=== PATIENT | female | born 1980 | race Caucasian/White ===

== ENCOUNTER 2016-08-08 22:06 | Emergency (ER) | payer MEDICAID, OTHER ==
[2016-08-08 23:34] LABS: ABSOLUTE EOSINOPHILS # (AUTO) 0.2 10^3/uL (0.0-0.6); ABSOLUTE LYMPHOCYTES (AUTO) 2.4 10^3/uL (0.5-4.7); ABSOLUTE MONOCYTES (AUTO) 0.5 10^3/uL (0.1-1.4); ABSOLUTE NEUT (AUTO) 4.9 10^3/uL (1.7-8.2); BASOPHILS % (AUTO) 0.4 % (0-2); HEMATOCRIT 40.7 % (36.0-47.0); HEMOGLOBIN 14.1 g/dL (12.0-15.5); HGB HCT DIFFERENCE 1.6; LYMPHOCYTES % (AUTO) 29.8 % (13-45); MEAN CORPUSCULAR HEMOGLOBIN 31.5 pg (27.0-33.4); MEAN CORPUSCULAR HGB CONC 34.6 g/dL (32.0-36.0); MEAN CORPUSCULAR VOLUME 91 fl (80-97); MONOCYTES % (AUTO) 6.4 % (3-13); RED BLOOD COUNT 4.47 10^6/uL (3.72-5.28); RED CELL DISTRIBUTION WIDTH 13.3 % (11.5-14.0); SEGMENTED NEUTROPHILS % (AUTO) 60.4 % (42-78); WHITE BLOOD COUNT 8.2 10^3/uL (4.0-10.5)
[2016-08-08 23:48] LABS: APPEARANCE,URINE SLIGHTLY-CLOUDY; BILIRUBIN,URINE NEGATIVE (NEGATIVE); GLUCOSE, URINE NEGATIVE (NEGATIVE); KETONES,URINE NEGATIVE (NEGATIVE); LEUKOCYTE ESTERASE,URINE NEGATIVE (NEGATIVE); NITRITE,URINE NEGATIVE (NEGATIVE); PROTEIN,URINE NEGATIVE (NEGATIVE); UROBILINOGEN,URINE NEGATIVE mg/dL (<2.0)
[2016-08-08 23:50] LABS: ALANINE AMINOTRANSFERASE 21 U/L (9-52); ALBUMIN 4.2 g/dL (3.5-5.0); ALKALINE PHOSPHATASE 77 U/L (38-126); ANION GAP 10 (5-19); ASPARTATE AMINO TRANSFERASE 18 U/L (14-36); BILIRUBIN,TOTAL 0.4 mg/dL (0.2-1.3); BLOOD UREA NITROGEN 13 mg/dL (7-20); CARBON DIOXIDE 28 mmol/L (22-30); CHLORIDE 102 mmol/L (98-107); CREATININE RESULT 0.69 mg/dL (0.52-1.25); GLUCOSE 113 mg/dL (75-110); LIPASE 245.4 U/L (23-300); POTASSIUM 4.6 mmol/L (3.6-5.0); SODIUM 140.2 mmol/L (137-145); TOTAL PROTEIN 7.2 g/dL (6.3-8.2)
[2016-08-09] MEDS ORDERED: NORMAL SALINE 1000 ML 1,000 ML IV ONE (01:12)
[2016-08-09] MEDS ORDERED: ONDANSETRON HCL INJ/PF 4 MG/2 ML SDV IV ONE (01:13)
[2016-08-09] MEDS ORDERED: MORPHINE SULFATE 10 MG/ML INJ IV ONE (01:13)
--- NOTE | 2016-08-09 01:19 | ER Document Report ---
ED General - General Chief Complaint: Abdominal Pain Stated Complaint: ABDOMINAL PAIN Information source: Patient Notes: This is a 35-year-old female who presents with a 2 day history of abdominal pain. The pain initially started yesterday in the lower abdomen as a cramping feeling and the patient attributed this to possible menstrual cramps. However today the pain has intensified in she states now her entire abdomen hurts. She also feels distended and bloated. She denies any fevers or chills. She has had no nausea, no vomiting. Her last oral intake was at 1900 and consisted of tomato soup and crackers which she tolerated well. She had a normal bowel movement at 2130 last night. She has had no dysuria. Her LMP 07/10/15. TRAVEL OUTSIDE OF THE [place] IN LAST 30 DAYS: No - Related Data Allergies/Adverse Reactions: Penicillins Allergy (Severe, Verified 05/13/16 01:04) swelling, difficulty breathing Shellfish * [Shellfish] Allergy (Severe, Verified 05/13/16 01:04) Anaphylaxis Past Medical History - General Information source: Patient - Social History Smoking Status: Never Smoker Chew tobacco use (# tins/day): No Frequency of alcohol use: None Drug Abuse: None Family History: Reviewed & Not Pertinent Patient has suicidal ideation: No Patient has homicidal ideation: No - Past Medical History Cardiac Medical History: Reports: Hx Hypertension Renal/ Medical History: Denies: Hx Peritoneal Dialysis GI Medical History: Reports: Hx Diverticulitis Psychiatric Medical History: Reports: Hx Depression Past Surgical History: Reports: Hx Section - x3 - Immunizations Hx Diphtheria, Pertussis, Tetanus Vaccination: Yes Review of Systems - Review of Systems Notes: REVIEW OF SYSTEMS: CONSTITUTIONAL : Denies fever, chills, or sweats. Denies recent illness. EENT: Denies eye, ear, throat, or mouth pain or symptoms. Denies nasal or sinus congestion. CARDIOVASCULAR: Denies chest pain. RESPIRATORY: Denies cough, cold, or chest congestion. Denies shortness of breath, difficulty breathing, or wheezing. GASTROINTESTINAL: As per history of present illness GENITOURINARY: Denies difficulty urinating, painful urination, burning, frequency, or blood in urine. MUSCULOSKELETAL: Denies neck or back pain or joint pain or swelling. SKIN: Denies rash or skin lesions. HEMATOLOGIC : Denies easy bruising or bleeding. LYMPHATIC: Denies swollen, enlarged glands. NEUROLOGICAL: Denies altered mental status or loss of consciousness. Denies headache. PSYCHIATRIC: Denies anxiety or stress or depression. ALL OTHER SYSTEMS REVIEWED AND NEGATIVE. Physical Exam - Vital signs Vitals: Temp Pulse Resp BP Pulse Ox 98.1 F 90 17 132/84 H 97 08/08/16 22:33 08/08/16 22:33 08/08/16 22:33 08/08/16 22:33 08/08/16 22:33 - Notes Notes: PHYSICAL EXAMINATION: GENERAL: Well-appearing, well-nourished and in no acute distress. HEAD: Atraumatic, normocephalic. EYES: Pupils equal round and reactive to light, extraocular movements intact, sclera anicteric, conjunctiva are normal. ENT: nares patent, oropharynx clear without exudates. Moist mucous membranes. NECK: Normal range of motion, supple without lymphadenopathy LUNGS: Breath sounds clear to auscultation bilaterally and equal. No wheezes rales or rhonchi. HEART: Regular rate and rhythm without murmurs ABDOMEN: Soft, somewhat distended, TTP to RLQ, epigastric and suprapubic area, voluntary guarding (mild), no rebound, normoactive bowel sounds. No masses appreciated. EXTREMITIES: Normal range of motion, no pitting or edema. No cyanosis. NEUROLOGICAL: Cranial nerves grossly intact. Normal speech, normal gait. No gross focal motor or sensory deficits appreciated. PSYCH: Normal mood, normal affect. SKIN: Warm, Dry, normal turgor, no rashes or lesions noted. Course - Re-evaluation Re-evalutation: 08/09/16 03:55 Patient states she continues to have intermittent abdominal cramping. She has had no nausea or vomiting. Labs and CAT scan were reviewed both of which were reassuring. At this time I see no physical exam findings or laboratory/ radiologic findings for acute surgical process. Patient will be treated symptomatically and is encouraged to follow closely with her primary care physician. We discussed strict return precautions to include fever, persistent vomiting, or increased pain. She is very comfortable with the plan QUESTIONS were answered. - Vital Signs Vital signs: Temp Pulse Resp BP Pulse Ox 98.1 F 92 17 132/84 H 97 08/08/16 22:34 08/08/16 22:34 08/08/16 22:34 08/08/16 22:34 08/08/16 22:34 - Laboratory Result Diagrams: 08/08/16 23:20 08/08/16 23:20 Laboratory results interpreted by me: 08/08/16 08/08/16 23:20 23:20 Glucose 113 H Urine Blood SMALL H Discharge - Discharge Clinical Impression: Abdominal pain in female patient Condition: Stable Disposition: HOME, SELF-CARE Additional Instructions: ABDOMINAL PAIN: There are many causes of abdominal pain. Pain can mean a serious problem requiring surgery (such as appendicitis). It can also be an innocent problem that goes away on its own (such as a viral infection). Often, time must pass to determine the cause of pain. The physician does not feel that hospitalization is necessary, at present. Things may change within the next 24 hours. Call the doctor or come back for re- examination if any problems occur, such as: (1) Pain that becomes more severe, steady, or becomes concentrated in one specific area. Also, pain that is more severe with movement or coughing. (2) Vomiting that persists or becomes more frequent. (3) Blood in the vomitus, urine, or bowel movements. Blood in the stool may have a tarry or black appearance. (4) Shaking chills or fever greater than 100 degrees F. (5) The abdomen becomes more distended or swollen. (6) Bowel movements cease. (7) Failure to improve as expected. NORMAL EXAM AND WORKUP: At this time, your examination and workup show no significant abnormality. No significant abnormal physical findings are noted. All laboratory, EKG, and imaging (x-ray, CT scans, ultrasound) studies that were ordered show no significant abnormality. Although your examination and all studies that were ordered showed no significant abnormal finding, there are no examinations and no studies that are 100% accurate. There is always the possibility that some abnormality could exist and not be detected with physical examination or within the limits and capabilities of laboratory and other studies. You should return or follow up as you were instructed on your visit today for further evaluation if your symptoms do not resolve. TORADOL INJECTION: You have been given an injection of ketorolac tromethamine (Toradol). This is an excellent, safe drug for pain control. It also has potent antiinflammatory action. You should have significant pain relief within about one hour. Toradol is not addicting and is non-sedating. It does not interfere with driving or work. Call or return if you develop itching, hives, shortness of breath, or rash. PAIN MEDICATION INJECTION: You have received an injection of a pain medication. You should experience significant pain relief within 45 minutes. This drug is a narcotic - - it will impair your judgement, slow your reaction time and make you sleepy ( as well as relieve your pain). Narcotics also can cause nausea. You should not drive, work with machinery, or perform any task requiring mental alertness until all effects of the medication are gone -- six to eight hours. Do not take any alcohol, or sedatives, and do not take any other medication without checking with your physician. ANTINAUSEA MEDICATION: You have been given a medication to suppress nausea and vomiting. This type of medication can be given as a shot, pill, or suppository. It will usually last for many hours. Pills and shots usually last six to eight hours, suppositories last about 12 hours. For the typical illness, only one or two doses of the medication may be necessary. Mild lightheadedness may occur. This type of medicine can cause drowsiness. Do not drive or operate dangerous machinery while under its influence. Do not mix with alcohol. See your doctor at once if you have muscle spasms or tightness, or uncontrollable motions (particularly of the neck, mouth, or jaw). Persistent vomiting or severe lightheadedness should also be evaluated by the physician. ANTISPASMODICS: You have been given a prescription for an antispasmodic medicine. This type of drug is used to decrease cramping and pain in the intestines. It is also used to decrease secretion of internal fluids (such as stomach acid in ulcer disease or pancreatic juice in pancreas disease). This medicine may cause drowsiness, especially with the first dose. Do not operate machinery or drive until all side effects have resolved. Do not combine with alcohol. Other common side effects include dry mouth and eyes. In older persons, antispasmodics can occasionally cause urinary retention, constipation, or trouble focusing the eyes. Glaucoma may be worsened by this medicine. FOLLOW-UP CARE: If you have been referred to a physician for follow-up care, call the physician s office for an appointment as you were instructed or within the next two days. If you experience worsening or a significant change in your symptoms, notify the physician immediately or return to the Emergency Department at any time for re-evaluation. Prescriptions: Dicyclomine HCl [Bentyl 20 mg Tablet] 20 mg PO Q6H PRN #15 tablet PRN Reason: For Pain Ibuprofen 600 mg PO Q8H PRN #20 tablet PRN Reason: For Pain
[2016-08-09] MEDS ORDERED: KETOROLAC TROMETHAMINE INJ/PF 30 MG/1 ML SDV IV ONE (03:40)
[2016-08-09] MEDS ORDERED: DICYCLOMINE HCL INJ 20 MG/2 ML AMPULE IM SCH (03:45)
[2016-08-09 04:26] VITALS: BP 125/81
== END 2016-08-09 04:20 | disposition home or self-care (01) ==
LOC: ER 22:06
DX: R10.84 Generalized abdominal pain (principal); R14.0 Abdominal distension (gaseous); I10 Essential (primary) hypertension; Z88.0 Allergy status to penicillin; Z87.892 Personal history of anaphylaxis; Z91.013 Allergy to seafood
CPT/HCPCS: 99284; 96372; 96361; 96374; 96375; 36415; 83690; 84703; 85025; 80053; 81001; 74177; J1885; J2270; J2405; J7030

== ENCOUNTER 2017-03-26 17:07 | Observation (INO) | payer SELFPAY ==
--- NOTE | 2017-03-26 19:13 | ER Document Report ---
ED Medical Screen (RME) - General Chief Complaint: Abdominal Pain >50 Stated Complaint: RIGHT SIDE PAIN Time Seen by Provider: 03/26/17 19:07 Notes: Patient is a 36 year old female who presents with RLQ pain with sudden onset at 6am, described as sharp stabbing pain, subsided throughout the day and worse in the past 30 minutes. Denies previous similar symptoms. Tubal ligation in December. Denies vaginal symptoms. Still has her appendix, Admits to history of ovarian cysts but that pain was more severe in pelvic in nature admits to nausea, denies vomiting, diarrhea or constipation Last NPO was noon TRAVEL OUTSIDE OF THE [place] IN LAST 30 DAYS: No - Related Data Allergies/Adverse Reactions: Penicillins Allergy (Severe, Verified 05/13/16 01:04) swelling, difficulty breathing Shellfish * [Shellfish] Allergy (Severe, Verified 05/13/16 01:04) Anaphylaxis Past Medical History - Past Medical History Cardiac Medical History: Reports: Hx Hypertension Renal/ Medical History: Denies: Hx Peritoneal Dialysis GI Medical History: Reports: Hx Diverticulitis Psychiatric Medical History: Reports: Hx Depression Past Surgical History: Reports: Hx Section - x3 - Immunizations Hx Diphtheria, Pertussis, Tetanus Vaccination: Yes Physical Exam - Vital signs Vitals: Temp Pulse Resp BP Pulse Ox 99 F 75 15 140/89 H 96 03/26/17 17:26 03/26/17 17:26 03/26/17 17:26 03/26/17 17:26 03/26/17 17:26 - Respiratory Respiratory status: No respiratory distress Chest status: Nontender Breath sounds: Normal Chest palpation: Normal - Cardiovascular Rhythm: Regular Heart sounds: Normal auscultation, S1 appreciated, S2 appreciated - Abdominal Inspection: Normal Distension: No distension Bowel sounds: Hyperactive Tenderness: McBurney's point Organomegaly: No organomegaly Course - Vital Signs Vital signs: Temp Pulse Resp BP Pulse Ox 99 F 75 15 140/89 H 96 03/26/17 17:26 03/26/17 17:26 03/26/17 17:26 03/26/17 17:26 03/26/17 17:26
[2017-03-26] MEDS ORDERED: NORMAL SALINE 1000 ML 1,000 ML IV PRN (19:14)
[2017-03-26 20:00] LABS: ABSOLUTE BASOPHILS # (AUTO) 0.1 10^3/uL (0.0-0.2); ABSOLUTE EOSINOPHILS # (AUTO) 0.1 10^3/uL (0.0-0.6); ABSOLUTE LYMPHOCYTES (AUTO) 2.1 10^3/uL (0.5-4.7); ABSOLUTE MONOCYTES (AUTO) 0.4 10^3/uL (0.1-1.4); ABSOLUTE NEUT (AUTO) 3.6 10^3/uL (1.7-8.2); BASOPHILS % (AUTO) 0.9 % (0-2); EOSINOPHILS % (AUTO) 1.6 % (0-6); HEMATOCRIT 39.6 % (36.0-47.0); HEMOGLOBIN 13.5 g/dL (12.0-15.5); HGB HCT DIFFERENCE 0.9; LYMPHOCYTES % (AUTO) 34.1 % (13-45); MEAN CORPUSCULAR HEMOGLOBIN 31.2 pg (27.0-33.4); MEAN CORPUSCULAR HGB CONC 34.1 g/dL (32.0-36.0); MEAN CORPUSCULAR VOLUME 92 fl (80-97); MONOCYTES % (AUTO) 6.3 % (3-13); RED BLOOD COUNT 4.33 10^6/uL (3.72-5.28); RED CELL DISTRIBUTION WIDTH 13.4 % (11.5-14.0); SEGMENTED NEUTROPHILS % (AUTO) 57.1 % (42-78); WHITE BLOOD COUNT 6.3 10^3/uL (4.0-10.5)
[2017-03-26] MEDS ORDERED: ONDANSETRON HCL INJ/PF 4 MG/2 ML SDV IV ONE (20:05)
[2017-03-26] MEDS ORDERED: MORPHINE SULFATE 10 MG/ML INJ IV ONE (20:05)
--- NOTE | 2017-03-26 20:09 | ER Document Report ---
ED GI/ - General Chief Complaint: Abdominal Pain >50 Stated Complaint: RIGHT SIDE PAIN Time Seen by Provider: 03/26/17 19:07 Notes: Patient is a 36-year-old female comes emergency department for chief complaint of right sided lower abdominal pain that started at 6 AM this morning, she states she has not felt good all day, she ate a few crackers at noon but otherwise has not eaten anything, she denies vomiting, fever, vaginal discharge , vaginal bleeding, flank pain, dysuria. She states that originally it was hurting more around her navel but now it is hurting more in the right lower area. Past medical history tubal ligation, , ovarian cyst, she takes no daily medications. TRAVEL OUTSIDE OF THE [place] IN LAST 30 DAYS: No - Related Data Allergies/Adverse Reactions: Penicillins Allergy (Severe, Verified 05/13/16 01:04) swelling, difficulty breathing Shellfish * [Shellfish] Allergy (Severe, Verified 05/13/16 01:04) Anaphylaxis Past Medical History - General Information source: Patient - Social History Smoking Status: Never Smoker Frequency of alcohol use: None Drug Abuse: None Lives with: Family Family History: Reviewed & Not Pertinent Patient has suicidal ideation: No Patient has homicidal ideation: No - Past Medical History Cardiac Medical History: Reports: Hx Hypertension Renal/ Medical History: Denies: Hx Peritoneal Dialysis GI Medical History: Reports: Hx Diverticulitis Psychiatric Medical History: Reports: Hx Depression Past Surgical History: Reports: Hx Section - x3 - Immunizations Hx Diphtheria, Pertussis, Tetanus Vaccination: Yes Review of Systems - Review of Systems Constitutional: No symptoms reported EENT: No symptoms reported Cardiovascular: No symptoms reported Respiratory: No symptoms reported Gastrointestinal: See HPI Genitourinary: No symptoms reported Female Genitourinary: No symptoms reported Musculoskeletal: No symptoms reported Skin: No symptoms reported Hematologic/Lymphatic: No symptoms reported Neurological/Psychological: No symptoms reported Physical Exam - Vital signs Vitals: Temp Pulse Resp BP Pulse Ox 99 F 75 15 140/89 H 96 03/26/17 17:26 03/26/17 17:26 03/26/17 17:26 03/26/17 17:26 03/26/17 17:26 Interpretation: Normal - General General appearance: Appears well, Alert - HEENT Head: Normocephalic, Atraumatic Eyes: Normal Conjunctiva: Normal Extraocular movements intact: Yes Eyelashes: Normal Pupils: PERRL Nasal: Normal Mouth/Lips: Normal Mucous membranes: Normal Pharynx: Normal Neck: Normal - Respiratory Respiratory status: No respiratory distress Chest status: Nontender Breath sounds: Normal. No: Decreased air movement, Wheezing Chest palpation: Normal - Cardiovascular Rhythm: Regular. No: Tachycardia Heart sounds: Normal auscultation, S1 appreciated, S2 appreciated Murmur: No - Abdominal Inspection: Normal Distension: No distension Bowel sounds: Normal Tenderness: Tender, McBurney's point - Guarding specifically at McBurney's point , Guarding Organomegaly: No organomegaly - Genitourinary External exam: Normal Speculum exam: Cervix closed, Vaginal discharge - Minimal, scant Vaginal bleeding: None Bimanuel exam: No: Cervical motion tender Notes: PCT Myla present during exam - Back Back: Normal, Nontender. No: Tender, CVA tenderness - Extremities General upper extremity: Normal inspection, Nontender, Normal strength, Normal temperature General lower extremity: Normal inspection, Nontender, Normal strength, Normal temperature - Neurological Neuro grossly intact: Yes Cognition: Normal Orientation: AAOx4 Genesis Coma Scale Eye Opening: Spontaneous Genesis Coma Scale Verbal: Oriented [place] Coma Scale Motor: Obeys Commands Genesis Coma Scale Total: 15 Speech: Normal Motor strength normal: LUE, RUE, LLE, RLE Sensory: Normal - Psychological Associated symptoms: Normal affect, Normal mood - Skin Skin Temperature: Warm Skin Moisture: Dry Skin Color: Normal Course - Re-evaluation Re-evalutation: Patient in obvious discomfort, has tenderness at McBurney's point on exam, remaining abdomen is non-tender. No leukocytosis, chemistry unremarkable, urinalysis shows some dehydration but not infection. Cat scan reviewed from triage and shows small umbilical hernia containing fat, this is also palpable on exam, although the area is not tender on exam. Appendix visualized, radiologist reads as normal. On re-examination patient continues to be uncomfortable, has peritoneal signs on exam (just raising the bed higher makes patient uncomfortable). Pelvic examination is unremarkable with minimal discharge, no noted tenderness, no other concerning findings. No evidence of pelvic pain suggesting ovarian cyst either. Wet mount is nonspecific. Gonorrhea and Chlamydia still pending, patient denies concerns about STD. Spoke with Dr. Garcia, surgicalist freedom of information officer, he evaluated the patient at bedside and reviewed her workup. Recommendation is admit to hospital with observation. He does not recommend antibiotics or additional interventions at this time. - Vital Signs Vital signs: Temp Pulse Resp BP Pulse Ox 99 F 75 15 140/89 H 96 03/26/17 17:26 03/26/17 17:26 03/26/17 17:26 03/26/17 17:26 03/26/17 17:26 - Laboratory Result Diagrams: 03/26/17 19:38 03/26/17 20:20 Laboratory results interpreted by me: 03/26/17 03/26/17 19:51 20:20 Chloride 110 H Carbon Dioxide 21 L Urine Protein 30 H Urine Blood MODERATE H Discharge - Discharge Clinical Impression: Right lower quadrant pain Condition: Stable Disposition: ADMITTED OBSERVATION Admitting Provider: Surgicalist Unit Admitted: Surgical Floor
[2017-03-26 20:21] LABS: APPEARANCE,URINE SLIGHTLY-CLOUDY; BILIRUBIN,URINE NEGATIVE (NEGATIVE); GLUCOSE, URINE NEGATIVE (NEGATIVE); KETONES,URINE NEGATIVE (NEGATIVE); LEUKOCYTE ESTERASE,URINE NEGATIVE (NEGATIVE); NITRITE,URINE NEGATIVE (NEGATIVE); PROTEIN,URINE 30 mg/dL (NEGATIVE); URINE SPECIFIC GRAVITY 1.025; UROBILINOGEN,URINE NEGATIVE mg/dL (<2.0)
[2017-03-26 21:00] LABS: ALANINE AMINOTRANSFERASE 46 U/L (9-52); ALBUMIN 3.9 g/dL (3.5-5.0); ALKALINE PHOSPHATASE 83 U/L (38-126); ANION GAP 11 (5-19); ASPARTATE AMINO TRANSFERASE 21 U/L (14-36); BILIRUBIN,DIRECT 0.4 mg/dL (0.0-0.4); BILIRUBIN,TOTAL 0.5 mg/dL (0.2-1.3); BLOOD UREA NITROGEN 8 mg/dL (7-20); CALCIUM 8.6 mg/dL (8.4-10.2); CARBON DIOXIDE 21 mmol/L (22-30); CHLORIDE 110 mmol/L (98-107); CREATININE RESULT 0.77 mg/dL (0.52-1.25); GLUCOSE 84 mg/dL (75-110); LIPASE 144.4 U/L (23-300); POTASSIUM 3.7 mmol/L (3.6-5.0); SODIUM 142.3 mmol/L (137-145); TOTAL PROTEIN 6.3 g/dL (6.3-8.2)
--- NOTE | 2017-03-26 21:34 | RADIOLOGY REPORT (SQ) ---
EXAM DESCRIPTION: CT ABD/PELVIS WITH IV ONLY COMPLETED DATE/TIME: 03/26/2017 9:18 pm REASON FOR STUDY: RLQ pain COMPARISON: August 2016 TECHNIQUE: CT scan of the abdomen and pelvis performed using helical scanning technique with dynamic intravenous contrast injection. No oral contrast. Images reviewed with lung, soft tissue, and bone windows. Reconstructed coronal and sagittal MPR images reviewed. Delayed images for evaluation of the urinary system also acquired. All images stored on PACS. All CT scanners at this facility use dose modulation, iterative reconstruction, and/or weight based d osing when appropriate to reduce radiation dose to as low as reasonably achievable (ALARA). [facility]: Dose Right [facility]: CareDose [facility]: Dose Right [facility]: Teradose 4D [facility]: [email or web address] CONTRAST TYPE AND DOSE: contrast/concentration: Isovue 370.00 mg/ml; Total Contrast Delivered: 77.0 ml; Total Saline Delivered: 42.0 ml RENAL FUNCTION: Creatinine 0.77 RADIATION DOSE: Up-to-date CT equipment and radiation dose reduction techniques were employed. CTDIv ol: 6.9 mGy. DLP: 710 mGy-cm.. LIMITATIONS: None. FINDINGS: LOWER CHEST: No significant findings. No nodules or infiltrates. LIVER: Normal size. No masses. No dilated ducts. SPLEEN: Normal size. No focal lesions. PANCREAS: No masses. No significant calcifications. No adjacent inflammation or peripancreatic fluid collections. Pancreatic duct not dilated. GALLBLADDER: No identified stones by CT criteria. No inflammatory changes to suggest cholecystitis. ADRENAL GLANDS: No significant masses or asymmetry. RIGHT KIDNEY AND URETER: No solid masses. No significant calcifications. No hydronephrosis or hyd roureter. LEFT KIDNEY AND URETER: No solid masses. No significant calcifications. No hydronephrosis or hydr oureter. AORTA AND VESSELS: No aneurysm. No dissection. Renal arteries, SMA, celiac without stenosis. RETROPERITONEUM: No retroperitoneal adenopathy, hemorrhage or masses. BOWEL AND PERITONEAL CAVITY: No masses or inflammatory changes. No free fluid or peritoneal masses. APPENDIX: Normal. PELVIS: No mass. No free fluid. Normal bladder. ABDOMINAL WALL: No masses. Small umbilical hernia is identified containing fat BONES: No significant or acute findings. OTHER: No other significant finding. IMPRESSION: NO SIGNIFICANT OR ACUTE FINDING IN THE ABDOMEN OR PELVIS ON CT SCAN WITH IV CONTRAST. TECHNICAL DOCUMENTATION: JOB ID: [id number] Quality ID # [id number]: Final reports with documentation of one or more dose reduction techniques (e.g., Au tomated exposure control, adjustment of the mA and/or kV according to patient size, use of iterative reconstruction technique) 2010 [employer]- All Rights Reserved
--- NOTE | 2017-03-27 00:17 | HISTORY AND PHYSICAL E ---
History and Physical NAME: ANTOINETTE BHAKTA : 1980 AGE: 36Y ADMITTED: 03/26/2017 ROOM: ED51 REASON FOR ADMISSION: Right lower quadrant abdominal pain. HISTORY OF PRESENT ILLNESS: This 36-year-old female presents to the emergency room with sudden onset at 6:00 a.m. this morning of sharp, stabbing pain which began just to the right of the umbilicus, and then shifted to the right lower quadrant. The pain subsided throughout the day but got worse over the last 30 minutes before coming to the emergency room. Patient denies fever or chills, vaginal discharge, urinary symptoms, or change in bowel habits. Patient has a history of an ovarian cyst but that pain was more severe in the pelvis, and this pain is different than the pain that she has experienced prior. Patient does have nausea but no vomiting. Patient has been n.p.o. since noon. Patient underwent laboratory evaluation which revealed normal CBC. CT scan showed no evidence of appendicitis but on her physical exam, patient was noted to have right lower quadrant tenderness with mild guarding. For this reason, Surgical referral was made. PAST MEDICAL HISTORY: 1. Hypertension. 2. Diverticulitis. 3. History of depression. 4. x3. ALLERGIES: 1. PENICILLIN. 2. SHELLFISH. FAMILY HISTORY: Patient has no history of anesthesia or bleeding tendencies in the family. There is no history of diabetes mellitus, cardiac, renal, pulmonary, liver disease, or bleeding tendencies. PREVIOUS SURGICAL HISTORY: As noted above: . PHYSICAL EXAMINATION: GENERAL: Reveals a 36-year-old female who is normally nourished, normally developed, who is in no acute distress. VITAL SIGNS: Temperature 99, pulse 75, respirations 15, blood pressure 140/89, oximetry 96%. HEENT: There is no conjunctival pallor or scleral icterus. NECK: Supple without nodes, masses, thyromegaly, JVD, or bruits. Trachea is midline. CHEST WALL: Good excursions. LUNGS: Clear anteriorly with good entry. CARDIOVASCULAR: S1 and S2 are audible without murmurs or gallops. ABDOMEN: Soft. Bowel sounds are present with mild right lower quadrant tenderness with some guarding but no rebound. There is no organomegaly or masses and no hernias or bruits noted. EXTREMITIES: Full range of motion. Patient has negative obturator sign. Negative psoas sign. IMPRESSION: Right lower quadrant abdominal pain. Rule out appendicitis. PLAN: Patient is to be admitted to the hospital, will be given IV fluids, will be kept n.p.o. and will hold all antibiotics, antipyretics, and analgesics to determine the evolution of her pain. Should her pain and tenderness worsen over the next 12 hours, patient will be taken to the operating room for diagnostic laparoscopy and appendectomy. DICTATING PHYSICIAN: CLYDE BARROW M.D. [id number] PHY#: [id number] ID: [id number] JOB#: [id number] ACCT: [id number] cc:Michelle VENCES MD
[2017-03-27] MEDS: DEXTROSE 5%-LACTATED RINGERS 1,000 ML IV PRN ×2 (01:00→10:37)
[2017-03-27 01:17] LABS: CHLAM PCR NOT DETECTED (NOT DETECT)
[2017-03-27 06:23] LABS: ABSOLUTE EOSINOPHILS # (AUTO) 0.1 10^3/uL (0.0-0.6); ABSOLUTE LYMPHOCYTES (AUTO) 2.2 10^3/uL (0.5-4.7); ABSOLUTE MONOCYTES (AUTO) 0.4 10^3/uL (0.1-1.4); ABSOLUTE NEUT (AUTO) 2.9 10^3/uL (1.7-8.2); BASOPHILS % (AUTO) 0.6 % (0-2); EOSINOPHILS % (AUTO) 1.6 % (0-6); HEMATOCRIT 34.8 % (36.0-47.0); HEMOGLOBIN 11.9 g/dL (12.0-15.5); HGB HCT DIFFERENCE 0.9; LYMPHOCYTES % (AUTO) 39.3 % (13-45); MEAN CORPUSCULAR HEMOGLOBIN 31.4 pg (27.0-33.4); MEAN CORPUSCULAR HGB CONC 34.3 g/dL (32.0-36.0); MEAN CORPUSCULAR VOLUME 92 fl (80-97); MONOCYTES % (AUTO) 7.9 % (3-13); RED CELL DISTRIBUTION WIDTH 13.1 % (11.5-14.0); SEGMENTED NEUTROPHILS % (AUTO) 50.6 % (42-78); WHITE BLOOD COUNT 5.7 10^3/uL (4.0-10.5)
[2017-03-27] MEDS: ENOXAPARIN SODIUM INJ 40 MG/0.4 ML DISP.SYRIN SUBCUT SCH (10:03)
[2017-03-27] MEDS: ONDANSETRON HCL INJ/PF 4 MG/2 ML SDV IV PRN ×2 (10:14→19:48)
[2017-03-27] MEDS ORDERED: HYDROMORPHONE HCL INJ/PF 2 MG/ML AMPULE IV ONE (12:30)
[2017-03-27] MEDS ORDERED: BUPIVACAINE HCL 0.5 % INJ/PF 30 ML SDV ONE (13:06)
[2017-03-27] MEDS ORDERED: PROMETHAZINE HCL INJ 25 MG/1 ML VIAL IV PRN (14:37)
[2017-03-27] MEDS ORDERED: DIPHENHYDRAMINE HCL 50 MG/ML VIAL IV PRN (14:37)
[2017-03-27] MEDS ORDERED: FENTANYL CITRATE INJ/PF 100 MCG/2 ML AMPUL IV PRN ×3 (14:37)
[2017-03-27] MEDS ORDERED: MEPERIDINE HCL/PF INJ 25 MG/1 ML DISP.SYRIN IV PRN (14:37)
[2017-03-27] MEDS ORDERED: MORPHINE SULFATE 10 MG/ML INJ IV PRN (14:37)
[2017-03-27] MEDS ORDERED: ACETAMINOPHEN 100 ML IV ONE (14:41)
[2017-03-27] MEDS ORDERED: FENTANYL CITRATE INJ/PF 100 MCG/2 ML AMPUL ONE (14:41)
[2017-03-27] MEDS ORDERED: HYDROMORPHONE HCL INJ/PF 2 MG/ML AMPULE ONE (14:41)
[2017-03-27] MEDS ORDERED: PROPOFOL INJ 200 MG/20 ML VIAL IV ONE (14:41)
[2017-03-27] MEDS ORDERED: MIDAZOLAM 2 MG/2 ML INJ ONE (14:41)
[2017-03-27] MEDS ORDERED: LEVOFLOXACIN 750 MG/D5W RTU 750 MG/150 ML RTUPB IV ONE (14:47)
[2017-03-27] MEDS ORDERED: ONDANSETRON HCL INJ/PF 4 MG/2 ML SDV ONE (14:55)
[2017-03-27] MEDS ORDERED: ONDANSETRON HCL INJ/PF 4 MG/2 ML SDV IV PRN (16:17)
--- NOTE | 2017-03-27 16:17 | Brief Operative Note ---
BRIEF OPERATIVE REPORT DATE OF SURGERY: 03/27/17 TIME OF SURGERY: 15:30 PREOPERATIVE DIAGNOSIS: RLQ pain POSTOPERATIVE DIAGNOSIS: Normal appearing appendix, adhesions betweeen supra- abdominal wall and uterus SURGEON: CLYDE BARROW FINDINGS: Normal appearing appendix, adhesions betweeen supra-abdominal wall and uterus COMPLICATIONS: None ESTIMATED BLOOD LOSS: 5cc TISSUE REMOVED OR ALTERED: Appendix TECHNICAL PROCEDURE: Laparoscopic Lysis of adhesions, laparoscopic apppendectomy
[2017-03-27] MEDS: FENTANYL CITRATE INJ/PF 100 MCG/2 ML AMPUL ONE ×2 (16:40→16:45)
--- NOTE | 2017-03-27 17:27 | OPERATIVE REPORT E ---
Operative Report NAME: ANTOINETTE BHAKTA : 1980 AGE: 36Y DATE OF SURGERY: 03/27/2017 ROOM: 210 PREOPERATIVE DIAGNOSIS: Right lower quadrant pain. POSTOPERATIVE DIAGNOSIS: Right lower quadrant pain secondary to possible adhesions between the suprapubic abdominal wall and the uterus as the patient had a normal-appearing appendix. OPERATION: Diagnostic laparoscopy, laparoscopic appendectomy, and laparoscopic lysis of adhesions between the suprapubic abdominal wall and the dome of the uterus. SURGEON: CLYDE BARROW M.D. ANESTHESIA: General. REPLACEMENT: Crystalloid. DRAINS: None. COMPLICATIONS: None. CONDITION: Stable. FINDINGS: As described above, there were dense between the dome of the uterus and the suprapubic abdominal wall. There was no evidence of appendicitis. No other right lower quadrant abnormalities were noted. The tube and ovary looked normal grossly. PROCEDURE: The patient was brought to the operative suite and placed in the supine position on the operating table. Monitoring devices were attached, IV sedation was administered, followed by the induction of general endotracheal anesthesia. The patient's abdomen was prepped and draped in the usual sterile manner, then a timeout was achieved. Once all concurred, local anesthesia was injected just below the umbilicus through the skin and subcutaneous tissue. We then made a curvilinear transverse incision just below the umbilicus through skin and subcutaneous tissue down to the linea alba. Two #0-Vicryl stay sutures were placed in the linea alba, then an opening was made in the linea alba, and the peritoneum was grasped and opened between two Hoffman clamps, and the abdominal cavity was entered. Using digital exploration, we ensured there were no viscera adherent to the anterior abdominal wall. We then placed a Edvin trocar through the opening into the peritoneal cavity and secured with two #0-Vicryl stay sutures. Insufflation was begun with CO2, and once adequate pressures were reached at 16 mmHg, laparoscopic camera and light source were inserted. No evidence of any bleeding or injuries were noted, and the adhesions between the uterus and the anterior abdominal wall were noted. We then placed our remaining two trocars, most of which were 5 mm trocars in the usual anatomic positions, one in the suprapubic region just through the left of the adhesions and one in the left lower quadrant. We began by placing the patient in the Trendelenburg position and rotating the patient towards md. We grasped the cecum and noted the appendix which was quite elongated but with no evidence of infection. We made an opening at the base of the appendix, and using the endoscopic HAO, we divided the appendix from the cecum. The HAO was reloaded, and then with a blue load, we divided the mesoappendix. The appendix was then placed in an Endo-Bag and removed using the umbilical port site. Then, we replaced at trocar at the umbilical site after removing the appendix through the Endo-Bag and began to takedown the adhesions between the uterus and the anterior abdominal wall. This was done using sharp and blunt dissection using the laparoscopic scissors attached to the cautery. After taking these adhesions, we controlled a minimal amount of bleeding with the cautery, and after being satisfied with hemostasis, we irrigated the area with normal saline and then proceeded to removal of trocars under direct vision and decompressed the abdomen and terminated the procedure. We approximated the infraumbilical fascial opening using #0-Vicryl and the skin of all incisions were approximated using skin lorin. The patient tolerated the procedure well. Sponge and instrument count was correct. The patient was discharged to the PACU in stable condition. DICTATING PHYSICIAN: CLYDE BARROW M.D. [id number] PHY#: [id number] ID: [id number] JOB#: [id number] ACCT: [id number] cc:CLYDE BARROW M.D. >
[2017-03-27] MEDS: MORPHINE SULFATE 10 MG/ML INJ IV PRN ×2 (17:36→23:27)
[2017-03-27] MEDS: OXYCODONE-ACETAMINOPHEN 5-325 MG TABLET PO PRN (19:47)
[2017-03-28] MEDS: OXYCODONE-ACETAMINOPHEN 5-325 MG TABLET PO PRN ×2 (05:06→12:42)
[2017-03-28] MEDS: DEXTROSE 5%-LACTATED RINGERS 1,000 ML IV PRN (06:09)
[2017-03-28] MEDS: MORPHINE SULFATE 10 MG/ML INJ IV PRN (08:37)
[2017-03-28] MEDS ORDERED: KETOROLAC TROMETHAMINE INJ/PF 30 MG/1 ML SDV IV PRN (09:08)
--- NOTE | 2017-03-28 09:16 | PDOC PROGRESS REPORT ---
Subjective Progress Note for:: 03/28/17 Subjective:: Mrs Forte is a 36 year old female who is POD 1 s/p lap appy. Passing flattus. Pain to surgical sites and appendectomy site. Physical Exam Vital Signs: Temp Pulse Resp BP Pulse Ox 98.4 F 71 16 107/70 98 03/28/17 08:18 03/28/17 08:18 03/28/17 08:18 03/28/17 08:18 03/28/17 08:18 Intake & Output 03/27/17 03/28/17 03/29/17 06:59 06:59 06:59 Intake Total 2549 Output Total 350 915 Balance -350 1634 Weight 71.1 kg 70.9 kg General appearance: PRESENT: no acute distress, well-nourished Head exam: PRESENT: atraumatic, normocephalic Eye exam: PRESENT: conjunctiva pink. ABSENT: conjunctival injection Mouth exam: PRESENT: moist, tongue midline. ABSENT: dry mucosa Respiratory exam: PRESENT: symmetrical, unlabored. ABSENT: accessory muscle use , tachypnea GI/Abdominal exam: PRESENT: soft, tenderness - focal. ABSENT: ascites, diminished bowel sounds, rebound, rigid Musculoskeletal exam: PRESENT: ambulatory, full ROM Neurological exam: PRESENT: alert, awake, oriented to person, oriented to place , oriented to time, oriented to situation, CN II-XII grossly intact. ABSENT: motor sensory deficit Results Laboratory Results: 03/27/17 05:50 Impressions: Abdomen/Pelvis CT 03/26/17 19:14 IMPRESSION: NO SIGNIFICANT OR ACUTE FINDING IN THE ABDOMEN OR PELVIS ON CT SCAN WITH IV CONTRAST. Assessment & Plan - Diagnosis (1) Status post laparoscopic appendectomy Is this a current diagnosis for this admission?: Yes Plan: Home today with tolerance of diet, pain control and adequate urination. Likely home after lunch. Adding toradol IV for pain control. Discussed pain control options for home upon discharge.
--- NOTE | 2017-03-28 09:35 | PDOC DISCHARGE SUMMARY ---
Discharge Summary (SDC) - Discharge Final Diagnosis: s/p Laparoscopic appendectomy Date of Surgery: 03/27/17 Discharge Date: 03/28/17 Condition: Good Forms: Laparoscopis Surgery([facility]) Treatment or Instructions: Laparoscopic appendectomy Prescriptions: Oxycodone HCl/Acetaminophen [Percocet 5-325 mg Tablet] 1 tab PO Q4HP PRN #20 tablet NS PRN Reason: For Pain Referrals: [facility] [Provider Group] - 04/12/17 2:15 pm (Please follow up at [facility] on 04/12/17 at 2:15 pm. If you need to reschedule or have kvng questions please call the office directly at .) Discharge Diet: As Tolerated Respiratory Treatments at Home: Deep Breathing/Coughing Discharge Activity: No Driving, No Lifting Over 10 Pounds, No tub bath, Walk Frequently Home Care Assistance: None Needed Report the Following to Your Physician Immediately: Shortness of Breath, Nausea , Vomiting, Increase in Pain, Fever over 101 Degrees, Unusual Bleeding, Swelling , Warmth, Increased Soreness, Drainage-Yellow, Drainage-Mae, Drainage-Green, Drainage-Foul Smelling, Numbness, Urinary Infection Signs
[2017-03-28] MEDS: ENOXAPARIN SODIUM INJ 40 MG/0.4 ML DISP.SYRIN SUBCUT SCH (10:30)
[2017-03-28] MEDS ORDERED: NEOSTIGMINE METHYLSULFATE 10 MG/10 ML VIAL ONE (14:24)
[2017-03-28] MEDS ORDERED: ONDANSETRON HCL INJ/PF 4 MG/2 ML SDV ONE (14:24)
[2017-03-28] MEDS ORDERED: LIDOCAINE 2% INJ-PF (20 MG/ML) 10 ML AMPUL ONE (14:24)
[2017-03-28] MEDS ORDERED: VECURONIUM BROMIDE INJ 10 MG VIAL IV ONE (14:24)
[2017-03-28] MEDS ORDERED: SUCCINYLCHOLINE CHLORIDE INJ 200 MG/10 ML VIAL ONE (14:24)
[2017-03-28] MEDS ORDERED: DEXAMETHASONE SOD PHOSPHATE INJ 4 MG/1 ML VIAL ONE (14:24)
[2017-03-28] MEDS ORDERED: GLYCOPYRROLATE INJ 0.4 MG/2 ML VIAL ONE (14:24)
[2017-03-28 15:26] VITALS: BP 113/80
== END 2017-03-28 15:18 | disposition home or self-care (01) ==
LOC: ER 17:07 → EH 22:25 → 2N 03-27 00:09
PROVIDERS: ATTEND Surgery
PROC: 0DTJ4ZZ Resection of Appendix, Percutaneous Endoscopic Approach (ICD-10-PCS; principal; 2017-03-27 15:30)
DX: K38.8 Other specified diseases of appendix (principal); K42.9 Umbilical hernia without obstruction or gangrene; E86.0 Dehydration; R14.3 Flatulence; Z98.51 Tubal ligation status; Z87.19 Personal history of other diseases of the digestive system; Z87.42 Personal history of other diseases of the female genital tract
CPT/HCPCS: 99285; 96361; 96374; 96375; 36415 ×2; 87210; 83690; 85025 ×2; 81025; 80053; 81001; 87491; 87591; 88304 ×2; 74177; 44970; J2250; J1100; J3010; J3490 ×2; J1885; J2270 ×3; J1650; J1170; J0330; J2405 ×3; J7030; J2704; J1956; J0131; 840

== ENCOUNTER 2017-09-28 23:48 | Emergency (ER) | payer SELFPAY ==
[2017-09-29 01:26] LABS: AMORPHOUS SEDIMENT,URINE TRACE /HPF; APPEARANCE,URINE CLOUDY; BILIRUBIN,URINE NEGATIVE (NEGATIVE); COLOR,URINE YELLOW; GLUCOSE, URINE NEGATIVE (NEGATIVE); KETONES,URINE NEGATIVE (NEGATIVE); LEUKOCYTE ESTERASE,URINE NEGATIVE (NEGATIVE); NITRITE,URINE NEGATIVE (NEGATIVE); PROTEIN,URINE NEGATIVE (NEGATIVE); URINE SPECIFIC GRAVITY 1.014; UROBILINOGEN,URINE NEGATIVE mg/dL (<2.0)
[2017-09-29] MEDS ORDERED: ONDANSETRON HCL INJ/PF 4 MG/2 ML SDV IV ONE (01:42)
[2017-09-29] MEDS ORDERED: MORPHINE SULFATE 10 MG/ML INJ IV ONE ×2 (01:42→02:35)
[2017-09-29] MEDS ORDERED: NORMAL SALINE 1000 ML 1,000 ML IV ONE (01:42)
[2017-09-29 01:45] LABS: ABSOLUTE EOSINOPHILS # (AUTO) 0.1 10^3/uL (0.0-0.6); ABSOLUTE LYMPHOCYTES (AUTO) 2.1 10^3/uL (0.5-4.7); ABSOLUTE MONOCYTES (AUTO) 0.6 10^3/uL (0.1-1.4); ABSOLUTE NEUT (AUTO) 5.9 10^3/uL (1.7-8.2); BASOPHILS % (AUTO) 0.5 % (0-2); EOSINOPHILS % (AUTO) 0.7 % (0-6); HEMATOCRIT 39.7 % (36.0-47.0); HEMOGLOBIN 13.5 g/dL (12.0-15.5); LYMPHOCYTES % (AUTO) 23.9 % (13-45); MEAN CORPUSCULAR HEMOGLOBIN 31.6 pg (27.0-33.4); MEAN CORPUSCULAR HGB CONC 34.1 g/dL (32.0-36.0); MEAN CORPUSCULAR VOLUME 93 fl (80-97); PLATELET COUNT 250 10^3/uL (150-450); RED BLOOD COUNT 4.29 10^6/uL (3.72-5.28); RED CELL DISTRIBUTION WIDTH 12.3 % (11.5-14.0); SEGMENTED NEUTROPHILS % (AUTO) 67.9 % (42-78); TOTAL CELLS COUNTED % (AUTO) 100 %; WHITE BLOOD COUNT 8.7 10^3/uL (4.0-10.5)
[2017-09-29 02:05] LABS: ALANINE AMINOTRANSFERASE 31 U/L (9-52); ALBUMIN 4.4 g/dL (3.5-5.0); ALKALINE PHOSPHATASE 110 U/L (38-126); ANION GAP 14 (5-19); ASPARTATE AMINO TRANSFERASE 19 U/L (14-36); BILIRUBIN,DIRECT 0.3 mg/dL (0.0-0.4); BILIRUBIN,TOTAL 0.3 mg/dL (0.2-1.3); BLOOD UREA NITROGEN 10 mg/dL (7-20); CALCIUM 9.9 mg/dL (8.4-10.2); CARBON DIOXIDE 26 mmol/L (22-30); CHLORIDE 106 mmol/L (98-107); GLUCOSE 102 mg/dL (75-110); LIPASE 214.3 U/L (23-300); POTASSIUM 4.6 mmol/L (3.6-5.0); SODIUM 145.7 mmol/L (137-145); TOTAL PROTEIN 7.2 g/dL (6.3-8.2)
--- NOTE | 2017-09-29 02:40 | ER Document Report ---
ED GI/ - General Chief Complaint: Abdominal Pain Stated Complaint: ABDOMINAL PAIN Time Seen by Provider: 09/29/17 01:39 Notes: Patient is a 36-year-old female who comes in with abdominal pain, nausea and diarrhea since yesterday. States it is worse with eating. Patient has a history of C-sections 3, hysterectomy, and appendectomy last year. Patient still has her gallbladder. States that she was supposed to leave for [place] yesterday but because of the symptoms she did not go on vacation as planned. Tried taking Tylenol and ibuprofen at home without relief. Denies any medical problems. States that she has not had pain like this before. No known biliary issues. TRAVEL OUTSIDE OF THE [place] IN LAST 30 DAYS: No - HPI Patient complains to provider of: Abdominal pain Timing/Duration: Constant Quality of pain: Dull, Throbbing Severity at maximum: Severe Severity in ED: Severe Location: Epigastric Vaginal bleeding (Compared to normal period): None - Related Data Allergies/Adverse Reactions: Penicillins Allergy (Severe, Verified 04/07/17 04:22) swelling, difficulty breathing Shellfish * [Shellfish] Allergy (Severe, Verified 04/07/17 04:22) Anaphylaxis Past Medical History - Social History Smoking Status: Never Smoker Frequency of alcohol use: None Family History: Reviewed & Not Pertinent - Past Medical History Cardiac Medical History: Reports: Hx Hypertension - no meds Denies: Hx Congestive Heart Failure, Hx Heart Attack Pulmonary Medical History: Denies: Hx Asthma, Hx Bronchitis, Hx COPD, Hx Pneumonia, Hx Tuberculosis Neurological Medical History: Denies: Hx Seizures Renal/ Medical History: Denies: Hx End Stage Renal Disease, Hx Kidney Stones, Hx Peritoneal Dialysis GI Medical History: Reports: Hx Diverticulitis. Denies: Hx Cirrhosis, Hx Gastroesophageal Reflux Disease, Hx Ulcer Musculoskeltal Medical History: Denies Hx Arthritis, Denies Hx Multiple Sclerosis Psychiatric Medical History: Denies: Hx Bipolar Disorder, Hx Depression, Hx Schizophrenia Past Surgical History: Reports: Hx Section - x3 - Immunizations Hx Diphtheria, Pertussis, Tetanus Vaccination: Yes Review of Systems - Review of Systems Constitutional: No symptoms reported EENT: No symptoms reported Cardiovascular: No symptoms reported Respiratory: No symptoms reported Gastrointestinal: See HPI Genitourinary: No symptoms reported Female Genitourinary: No symptoms reported Musculoskeletal: No symptoms reported Skin: No symptoms reported Hematologic/Lymphatic: No symptoms reported Neurological/Psychological: No symptoms reported Physical Exam - Vital signs Vitals: Temp Pulse Resp BP Pulse Ox 98.2 F 83 18 150/100 H 97 09/28/17 23:55 09/28/17 23:55 09/28/17 23:55 09/28/17 23:55 09/28/17 23:55 Interpretation: Normal - General General appearance: Appears well, Alert - HEENT Head: Normocephalic, Atraumatic Eyes: Normal Pupils: PERRL - Respiratory Respiratory status: No respiratory distress Chest status: Nontender Breath sounds: Normal Chest palpation: Normal - Cardiovascular Rhythm: Regular Heart sounds: Normal auscultation Murmur: No - Abdominal Inspection: Normal Distension: No distension Bowel sounds: Normal Tenderness: Tender, Ortega's sign, Guarding Organomegaly: No organomegaly - Back Back: Normal, Nontender - Extremities General upper extremity: Normal inspection, Nontender, Normal color, Normal ROM , Normal temperature General lower extremity: Normal inspection, Nontender, Normal color, Normal ROM , Normal temperature, Normal weight bearing. No: Xavier's sign - Neurological Neuro grossly intact: Yes Cognition: Normal Orientation: AAOx4 Stoddard Coma Scale Eye Opening: Spontaneous Genesis Coma Scale Verbal: Oriented Stoddard Coma Scale Motor: Obeys Commands Stoddard Coma Scale Total: 15 Speech: Normal Motor strength normal: LUE, RUE, LLE, RLE Sensory: Normal - Psychological Associated symptoms: Normal affect, Normal mood - Skin Skin Temperature: Warm Skin Moisture: Dry Skin Color: Normal Course - Re-evaluation Re-evalutation: 09/29/17 03:50 Patient with normal blood work and no acute findings on CT. Biliary tree within normal limits. Patient is feeling better with fluids and medication. Symptoms are most likely due to gastritis. Lipase within normal limits. No evidence for obstruction. No fever or leukocytosis. Vitals are stable. Patient will be discharged home with medications for gastritis. Return if worsening or concerning symptoms. Understands and agrees with plan. Grateful for care. Follow up with PMD next week. - Vital Signs Vital signs: Temp Pulse Resp BP Pulse Ox 98.2 F 83 18 150/100 H 97 09/28/17 23:55 09/28/17 23:55 09/28/17 23:55 09/28/17 23:55 09/28/17 23:55 - Laboratory Result Diagrams: 09/29/17 01:32 09/29/17 01:32 Laboratory results interpreted by me: 09/29/17 01:32 Sodium 145.7 H - Diagnostic Test Radiology reviewed: Reports reviewed Discharge - Discharge Clinical Impression: Gastritis Qualifiers: Gastritis type: unspecified gastritis Chronicity: acute Gastritis bleeding: without bleeding Qualified Code(s): K29.00 - Acute gastritis without bleeding Condition: Stable Disposition: HOME, SELF-CARE Instructions: Gastritis ([facility]) Prescriptions: Dicyclomine HCl [Bentyl 20 mg Tablet] 20 mg PO TIDP PRN #40 tablet PRN Reason: Omeprazole 20 mg PO DAILY #30 tablet. Ondansetron [Zofran Odt 4 mg Tablet] 1 - 2 tab PO Q4H PRN #15 tab.rapdis PRN Reason: For Nausea/Vomiting Sucralfate [Carafate 1 gm Tablet] 1 gm PO ACHS #120 tablet Referrals: BRAYDEN MCDANIEL PA-C [Primary Care Provider] - Follow up in 3-5 days
--- NOTE | 2017-09-29 03:40 | RADIOLOGY REPORT (SQ) ---
EXAM DESCRIPTION: CT ABD/PELVIS WITH IV ONLY CLINICAL HISTORY: 36 years Female, Upper abd pain, eval biliary tree/obstruction COMPARISON: 14, 03.26.17. TECHNIQUE: IV contrast. Coronal and sagittal reformat. This exam was performed according to our departmental dose-optimization program, which includes automated exposure control, adjustment of the mA and/or kV according to patient size and/or use of iterative reconstruction technique. FINDINGS: Indeterminate 0.9 cm exophytic round lesion of the left kidney is increased in size compared with prior CT from February 2014. Mild lymphadenopathy in minimal fat inflammation of mid abdominal mesenteric fat. Appendectomy suture. Inferior thorax, liver, gallbladder, pancreas, spleen, adrenals, renal system, gastrointestinal tract, pelvic organs, lymphatics, vasculature, and musculoskeleton appear otherwise unremarkable. IMPRESSION: Indeterminate, probably benign 0.9 cm exophytic round lesion of the left kidney is increased in size compared with prior CT from February 2014. Different diagnosis includes hemorrhagic cyst or other neoplasm. Dynamic contrast CT or MRI of the kidneys recommended.
[2017-09-29] MEDS ORDERED: LANSOPRAZOLE 15 MG TAB.RAP.DR PO ONE (03:46)
[2017-09-29] MEDS ORDERED: SUCRALFATE 1 GM TABLET PO ONE (03:46)
[2017-09-29] MEDS ORDERED: DICYCLOMINE HCL 20 MG TABLET PO ONE (03:46)
[2017-09-29] MEDS ORDERED: ONDANSETRON ODT 4 MG TAB (6 TAB/ER DISP) PO PRN (03:54)
[2017-09-29] MEDS ORDERED: HYDROCODONE/ACETAMINOPHEN 5-325 MG (6 TAB/ER DISP) PO PRN (03:54)
[2017-09-29 04:22] VITALS: BP 128/96
== END 2017-09-29 04:22 | disposition home or self-care (01) ==
LOC: ER 23:48
DX: K29.00 Acute gastritis without bleeding (principal); R10.9 Unspecified abdominal pain; R11.0 Nausea; R19.7 Diarrhea, unspecified; Z90.710 Acquired absence of both cervix and uterus; Z88.0 Allergy status to penicillin; Z91.013 Allergy to seafood
CPT/HCPCS: 96376; 99284; 96361; 96374; 96375; 36415; 83690; 85025; 81025; 80053; 81001; 74177; J3490; J2270; J2405; J7030

== ENCOUNTER 2018-04-01 19:52 | Emergency (ER) | payer SELFPAY ==
[2018-04-01] MEDS ORDERED: ONDANSETRON HCL INJ/PF 4 MG/2 ML SDV IV ONE (22:20)
[2018-04-01] MEDS ORDERED: KETOROLAC TROMETHAMINE INJ/PF 30 MG/1 ML SDV IV ONE (22:20)
[2018-04-01] MEDS ORDERED: NORMAL SALINE 1000 ML 1,000 ML IV ONE (22:20)
--- NOTE | 2018-04-01 22:22 | ER Document Report ---
ED Medical Screen (RME) - General Chief Complaint: Abdominal Pain Stated Complaint: ABDOMINAL PAIN Time Seen by Provider: 04/01/18 22:20 Notes: 37-year-old female with chief complaint of sharp right upper quadrant and epigastric pain with nausea. No lower abdominal pain. Has had an appendectomy. TRAVEL OUTSIDE OF THE [place] IN LAST 30 DAYS: No - Related Data Allergies/Adverse Reactions: Penicillins Allergy (Severe, Verified 04/07/17 04:22) swelling, difficulty breathing Shellfish * [Shellfish] Allergy (Severe, Verified 04/07/17 04:22) Anaphylaxis Past Medical History - Social History Frequency of alcohol use: None Drug Abuse: None - Past Medical History Cardiac Medical History: Reports: Hx Hypertension - no meds Denies: Hx Congestive Heart Failure, Hx Heart Attack Pulmonary Medical History: Denies: Hx Asthma, Hx Bronchitis, Hx COPD, Hx Pneumonia, Hx Tuberculosis Neurological Medical History: Denies: Hx Seizures Renal/ Medical History: Denies: Hx End Stage Renal Disease, Hx Kidney Stones, Hx Peritoneal Dialysis GI Medical History: Reports: Hx Diverticulitis. Denies: Hx Cirrhosis, Hx Gastroesophageal Reflux Disease, Hx Ulcer Musculoskeltal Medical History: Denies Hx Arthritis, Denies Hx Multiple Sclerosis Psychiatric Medical History: Denies: Hx Bipolar Disorder, Hx Depression, Hx Schizophrenia Past Surgical History: Reports: Hx Appendectomy, Hx Section - x3, Hx Hysterectomy - Immunizations Hx Diphtheria, Pertussis, Tetanus Vaccination: Yes History of Influenza Vaccine for 03/2017 - 08/2017 Season: Refused Physical Exam - Vital signs Vitals: Temp Pulse Resp BP Pulse Ox 98.5 F 80 16 141/94 H 98 04/01/18 20:03 04/01/18 20:03 04/01/18 20:03 04/01/18 20:03 04/01/18 20:03 - Abdominal Tenderness: Tender - Guarding in the epigastric and mainly right upper quadrant area, abdomen otherwise unremarkable, Ortega's sign Course - Vital Signs Vital signs: Temp Pulse Resp BP Pulse Ox 98.5 F 80 16 141/94 H 98 04/01/18 20:03 04/01/18 20:03 04/01/18 20:03 04/01/18 20:03 04/01/18 20:03 Doctor's Discharge - Discharge Referrals: MCDANIEL,BRAYDEN E, PA-C [Primary Care Provider] - Follow up as needed
--- NOTE | 2018-04-01 22:27 | ER Document Report ---
ED General - General Chief Complaint: Abdominal Pain Stated Complaint: ABDOMINAL PAIN Time Seen by Provider: 04/01/18 22:20 Notes: Patient is a 37-year-old female that presents to the emergency department for chief complaint of abdominal pain. Patient states the pain started Sunday, and has been persistent and seemingly worsening over time. The pain is located epigastric region and right upper quadrant, and they currently rate the pain as a 6 out of 10, and scribed as aching, and constant. They have had associated nausea, but no vomiting, no dysuria, hematuria. Patient denies any any fevers, chills or night sweats as well. Past Medical History: Denies chronic medical conditions Past Surgical History: x3, appendectomy, fallopian tube removal Social History: Denies current tobacco, alcohol or drug use Family History: Reviewed and noncontributory for presenting illness Allergies: Reviewed, see documented allergy list. REVIEW OF SYSTEMS: Unless otherwise stated in this report the patient's positive and negative responses for review of systems for constitutional, eyes, ENT, cardiovascular, respiratory, gastrointestinal, neurological, genitourinary, musculoskeletal, and integumentary systems and related systems to the presenting problem are either as stated in the HPI or were not pertinent or were negative for the symptoms and/or complaints related to the presenting medical problem. PHYSICAL EXAMINATION: Vital signs reviewed, nursing noted reviewed. GENERAL: Well-appearing, well-nourished and appears uncomfortable HEAD: Atraumatic, normocephalic. EYES: Eyes appear normal, extraocular movements intact, sclera anicteric, conjunctiva are normal. ENT: nares patent, oropharynx clear without exudates. Moist mucous membranes. NECK: Normal range of motion, supple without lymphadenopathy LUNGS: Breath sounds clear to auscultation bilaterally and equal. No wheezes rales or rhonchi. HEART: Regular rate and rhythm without murmurs ABDOMEN: Soft, normal bowel sounds, tenderness with palpation in the epigastric region and right upper quadrant, No rebound, guarding, or rigidity. No masses appreciated. EXTREMITIES: Nontender, good range of motion, no pitting or edema. NEUROLOGICAL: No focal neurological deficits. Moves all extremities spontaneously Motor and sensory grossly intact on exam. PSYCH: Normal mood, normal affect. SKIN: Warm, Dry, normal turgor, no rashes or lesions noted on exposed skin TRAVEL OUTSIDE OF THE [place] IN LAST 30 DAYS: No - Related Data Allergies/Adverse Reactions: Penicillins Allergy (Severe, Verified 04/07/17 04:22) swelling, difficulty breathing Shellfish * [Shellfish] Allergy (Severe, Verified 04/07/17 04:22) Anaphylaxis Past Medical History - Social History Smoking Status: Never Smoker Frequency of alcohol use: None Drug Abuse: None Family History: Reviewed & Not Pertinent Patient has suicidal ideation: No Patient has homicidal ideation: No - Past Medical History Cardiac Medical History: Reports: Hx Hypertension - no meds Denies: Hx Congestive Heart Failure, Hx Heart Attack Pulmonary Medical History: Denies: Hx Asthma, Hx Bronchitis, Hx COPD, Hx Pneumonia, Hx Tuberculosis Neurological Medical History: Denies: Hx Seizures Renal/ Medical History: Denies: Hx End Stage Renal Disease, Hx Kidney Stones, Hx Peritoneal Dialysis GI Medical History: Reports: Hx Diverticulitis. Denies: Hx Cirrhosis, Hx Gastroesophageal Reflux Disease, Hx Ulcer Musculoskeletal Medical History: Denies Hx Arthritis, Denies Hx Multiple Sclerosis Psychiatric Medical History: Denies: Hx Bipolar Disorder, Hx Depression, Hx Schizophrenia Past Surgical History: Reports: Hx Appendectomy, Hx Section - x3, Hx Hysterectomy - Immunizations Hx Diphtheria, Pertussis, Tetanus Vaccination: Yes Physical Exam - Vital signs Vitals: Temp Pulse Resp BP Pulse Ox 98.5 F 80 16 141/94 H 98 04/01/18 20:03 04/01/18 20:03 04/01/18 20:03 04/01/18 20:03 04/01/18 20:03 Course - Re-evaluation Re-evalutation: Patient seen and examined vital signs reviewed. Laboratory data and imaging were ordered as appropriate for the patient's presenting symptoms and complaint, with consideration of any critical or life threatening conditions that may be associated with their obtained history and exam as noted above. 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 Patient was agreeable to this plan of care and discharged home. Results were discussed with the patient at this point, after careful consideration I feel that that patient can be discharged from the emergency department, the patient was educated treatments and reasons to return to the emergency department based on their presumed diagnosis as noted above, they were advised to followup with a primary care physician in 2-3 days. Patient was agreeable to plan of care. *Note is created using voice recognition software and may contain spelling, syntax or grammatical errors. Laboratory 04/01/18 04/01/18 04/01/18 22:40 22:40 22:40 WBC 8.7 RBC 4.57 Hgb 14.8 Hct 42.7 MCV 94 MCH 32.4 MCHC 34.6 RDW 12.7 Plt Count 283 Seg Neutrophils % 64.6 Lymphocytes % 29.0 Monocytes % 5.2 Eosinophils % 0.5 Basophils % 0.7 Absolute Neutrophils 5.6 Absolute Lymphocytes 2.5 Absolute Monocytes 0.4 Absolute Eosinophils 0.0 Absolute Basophils 0.1 Sodium 143.5 Potassium 4.1 Chloride 103 Carbon Dioxide 26 Anion Gap 15 BUN 8 Creatinine 0.79 Est GFR ( Amer) > 60 Est GFR (Non-Af Amer) > 60 Glucose 89 Calcium 9.8 Total Bilirubin 0.8 Direct Bilirubin 0.2 Neonat Total Bilirubin Not Reportable Neonat Direct Bilirubin Not Reportable Neonat Indirect Bili Not Reportable AST 50 H ALT 42 Alkaline Phosphatase 121 Total Protein 8.3 H Albumin 4.9 Lipase 178.1 Serum HCG, Qual NEGATIVE Urine Color Urine Appearance Urine pH Ur Specific [place] Urine Protein Urine Glucose (UA) Urine Ketones Urine Blood Urine Nitrite Urine Bilirubin Urine Urobilinogen Ur Leukocyte Esterase Urine WBC (Auto) Urine RBC (Auto) Squamous Epi Cells Auto Urine Mucus (Auto) Urine Ascorbic Acid 04/01/18 22:40 WBC RBC Hgb Hct MCV MCH MCHC RDW Plt Count Seg Neutrophils % Lymphocytes % Monocytes % Eosinophils % Basophils % Absolute Neutrophils Absolute Lymphocytes Absolute Monocytes Absolute Eosinophils Absolute Basophils Sodium Potassium Chloride Carbon Dioxide Anion Gap BUN Creatinine Est GFR ( Amer) Est GFR (Non-Af Amer) Glucose Calcium Total Bilirubin Direct Bilirubin Neonat Total Bilirubin Neonat Direct Bilirubin Neonat Indirect Bili AST ALT Alkaline Phosphatase Total Protein Albumin Lipase Serum HCG, Qual Urine Color YELLOW Urine Appearance SLIGHTLY-CLOUDY Urine pH 5.0 Ur Specific [place] 1.012 Urine Protein NEGATIVE Urine Glucose (UA) NEGATIVE Urine Ketones NEGATIVE Urine Blood SMALL H Urine Nitrite NEGATIVE Urine Bilirubin NEGATIVE Urine Urobilinogen NEGATIVE Ur Leukocyte Esterase NEGATIVE Urine WBC (Auto) 1 Urine RBC (Auto) 2 Squamous Epi Cells Auto 3 Urine Mucus (Auto) OCC Urine Ascorbic Acid 40 H Abdomen Ultrasound 04/01/18 22:22 IMPRESSION: No sonographic abnormalities are identified in the right upper quadrant. - Vital Signs Vital signs: Temp Pulse Resp BP Pulse Ox 98.5 F 80 16 141/94 H 98 04/01/18 20:03 04/01/18 20:03 04/01/18 20:03 04/01/18 20:03 04/01/18 20:03 - Laboratory Result Diagrams: 04/01/18 22:40 04/01/18 22:40 Laboratory results interpreted by me: 04/01/18 04/01/18 22:40 22:40 AST 50 H Total Protein 8.3 H Urine Blood SMALL H Urine Ascorbic Acid 40 H Discharge - Discharge Clinical Impression: Epigastric pain Condition: Stable Disposition: HOME, SELF-CARE Instructions: Abdominal Pain ([facility]) Additional Instructions: Please return to the emergency department if you have any worsening, or concern of your symptoms. Please return to the emergency department if you develop chest pain, difficulty breathing, severe abdominal pain, or ongoing vomiting. Please follow-up with your primary care physician in 2-3 days and any other recommended physicians. If prescribed, take all medications as directed. If you have any questions or concerns do not hesitate to return the emergency department for evaluation. Prescriptions: Pantoprazole Sodium [Protonix] 40 mg PO DAILY #30 tablet. Referrals: BRAYDEN MCDANIEL PA-C [Primary Care Provider] - Follow up in 3-5 days DEBBIE DIAZ MD [ACTIVE STAFF] - Follow up in 3-5 days (gastroenterology )
[2018-04-01 22:50] LABS: ABSOLUTE BASOPHILS # (AUTO) 0.1 10^3/uL (0.0-0.2); ABSOLUTE LYMPHOCYTES (AUTO) 2.5 10^3/uL (0.5-4.7); ABSOLUTE MONOCYTES (AUTO) 0.4 10^3/uL (0.1-1.4); ABSOLUTE NEUT (AUTO) 5.6 10^3/uL (1.7-8.2); BASOPHILS % (AUTO) 0.7 % (0-2); EOSINOPHILS % (AUTO) 0.5 % (0-6); HEMATOCRIT 42.7 % (36.0-47.0); HEMOGLOBIN 14.8 g/dL (12.0-15.5); MEAN CORPUSCULAR HEMOGLOBIN 32.4 pg (27.0-33.4); MEAN CORPUSCULAR HGB CONC 34.6 g/dL (32.0-36.0); MEAN CORPUSCULAR VOLUME 94 fl (80-97); MONOCYTES % (AUTO) 5.2 % (3-13); PLATELET COUNT 283 10^3/uL (150-450); RED BLOOD COUNT 4.57 10^6/uL (3.72-5.28); RED CELL DISTRIBUTION WIDTH 12.7 % (11.5-14.0); SEGMENTED NEUTROPHILS % (AUTO) 64.6 % (42-78); TOTAL CELLS COUNTED % (AUTO) 100 %; WHITE BLOOD COUNT 8.7 10^3/uL (4.0-10.5)
[2018-04-01 23:04] LABS: ALANINE AMINOTRANSFERASE 42 U/L (9-52); ALBUMIN 4.9 g/dL (3.5-5.0); ALKALINE PHOSPHATASE 121 U/L (38-126); ANION GAP 15 (5-19); ASPARTATE AMINO TRANSFERASE 50 U/L (14-36); BILIRUBIN,DIRECT 0.2 mg/dL (0.0-0.4); BILIRUBIN,TOTAL 0.8 mg/dL (0.2-1.3); BLOOD UREA NITROGEN 8 mg/dL (7-20); CALCIUM 9.8 mg/dL (8.4-10.2); CARBON DIOXIDE 26 mmol/L (22-30); CHLORIDE 103 mmol/L (98-107); GLUCOSE 89 mg/dL (75-110); LIPASE 178.1 U/L (23-300); POTASSIUM 4.1 mmol/L (3.6-5.0); SODIUM 143.5 mmol/L (137-145); TOTAL PROTEIN 8.3 g/dL (6.3-8.2)
[2018-04-01 23:10] LABS: APPEARANCE,URINE SLIGHTLY-CLOUDY; BILIRUBIN,URINE NEGATIVE (NEGATIVE); COLOR,URINE YELLOW; GLUCOSE, URINE NEGATIVE (NEGATIVE); KETONES,URINE NEGATIVE (NEGATIVE); LEUKOCYTE ESTERASE,URINE NEGATIVE (NEGATIVE); NITRITE,URINE NEGATIVE (NEGATIVE); PROTEIN,URINE NEGATIVE (NEGATIVE); URINE SPECIFIC GRAVITY 1.012; UROBILINOGEN,URINE NEGATIVE mg/dL (<2.0)
--- NOTE | 2018-04-02 00:04 | RADIOLOGY REPORT (SQ) ---
CLINICAL DATA: 37-year-old female with right upper quadrant pain. TECHNICAL DATA: Limited sonographic imaging of the right upper quadrant was performed. Comparison: None. FINDINGS: The liver is normal in size and configuration. The liver demonstrates normal echogenicity. No focal hepatic abnormalities are identified. Doppler imaging reveals patency of the portal vein and normal hepatopedal flow. The gallbladder is well distended and normal in appearance. There is no evidence of biliary ductal dilatation. The common bile duct measures 3 mm in diameter. The gallbladder wall measures 3 mm in diameter which is at the upper limits of normal. No sonographic Ortega sign was detected by the technologist. The right kidney is normal in size, shape and echogenicity without hydronephrosis or definite nephrolithiasis. The right kidney measures 10.4 cm in length. There is no evidence of free fluid in the abdomen. The visualized portions of the pancreas are unremarkable. The aorta is normal in caliber and contour and tapers distally. The inferior vena cava is grossly unremarkable as visualized. IMPRESSION: No sonographic abnormalities are identified in the right upper quadrant.
[2018-04-02] MEDS ORDERED: ONDANSETRON ODT 4 MG TAB (6 TAB/ER DISP) PO PRN (01:41)
[2018-04-02 02:02] VITALS: BP 118/82
== END 2018-04-02 02:02 | disposition home or self-care (01) ==
LOC: ER 19:52
DX: R10.13 Epigastric pain (principal); R10.11 Right upper quadrant pain; R11.0 Nausea; I10 Essential (primary) hypertension; Z88.0 Allergy status to penicillin; Z90.49 Acquired absence of other specified parts of digestive tract; Z87.892 Personal history of anaphylaxis; Z91.013 Allergy to seafood; Z87.19 Personal history of other diseases of the digestive system; Z90.710 Acquired absence of both cervix and uterus; Z90.79 Acquired absence of other genital organ(s)
CPT/HCPCS: 99284; 36415; 83690; 84703; 85025; 80053; 81001; 76705; J1885; J2405; J7030